=== PATIENT | male | born 1960 | race Caucasian/White ===

== ENCOUNTER → 2021-09-09 | Outpatient (CLI) | payer OTHER ==
--- NOTE | 2021-09-09 10:51 | DIREP ---
PROCEDURE:CHEST 2 VIEWS COMPARISON:None. INDICATIONS:COUGH FINDINGS: LUNGS/PLEURA:No significant pulmonary parenchymal abnormalities. No effusions. VASCULATURE:Normal. Unremarkable pulmonary vasculature. CARDIAC:Normal. No cardiac silhouette abnormality or cardiomegaly. MEDIASTINUM:Normal. No visible mass or adenopathy. BONES:Incompletely visualized posterior instrumentation and fusion hardware of the upper lumbar spine. OTHER:Negative. CONCLUSION: No acute thoracic pathology. Dictated by: Merritt Bolivar MD on 09/09/2021 at 10:49 AM
== END | disposition home or self-care (01) ==
LOC: RAD 08:38
PROVIDERS: ATTEND Family Medicine
DX: R05.9 Cough, unspecified (principal)
CPT/HCPCS: 71046

== ENCOUNTER 2021-10-23 08:56 | Emergency (ER) | payer OTHER ==
[~2021-10-23] VITALS: Ht 180.3 cm; Wt 90.7 kg
[2021-10-23 09:17] VITALS: BP 133/82
[2021-10-23 09:22] VITALS: BP 133/82
--- NOTE | 2021-10-23 09:34 | ER.PDOC ---
General Chief Complaint: General Complaint Stated Complaint: LOSS OF TASTE TRAVEL OUT OF US: No Time seen by MD: 09:33 History of Present Illness Initial Comments COVID VACCINATED Timing/Duration: 4-6 hours Severity: mild Modifying Factors: improves with other Associated Symptoms: malaise Allergies: Coded Allergies: No Known Allergies (Unverified , 10/23/21) Past Medical History Medical History: cardiac problems, diabetes, GERD, high cholesterol Surgical History: cardiac cath, stent Social History Alcohol Use: rarely Drug Use: none Reviewed Nursing Reviewed: Vital Signs, Abn. Noted Review of Systems EENTM: nose congestion All Other Systems: Reviewed and Negative Physical Exam General Appearance: No Apparent Distress EENT: eyes nml inspection Neck: Non-Tender Respiratory: chest non-tender CVS: reg rate & rhythm Gastrointestinal: Normal Bowel Sounds Back: Normal Inspection Extremities: Normal Range of Motion Neurologic/Psychiatric: manager practice II-XII NML as Tested Skin: Normal Color Lymphatic: No Adenopathy Results/Orders Results/Orders Orders - COLTEN JIMENEZ MD Covid Resp Hussein (10/23/21 09:15) Vital Signs Date Time Temp Pulse Resp B/P (MAP) Pulse Ox O2 Delivery O2 Flow Rate FiO2 10/23/21 09:22 98.3 70 20 133/82 (99) 95 Room Air 10/23/21 09:17 98.3 70 20 95 10/23/21 09:17 98.3 70 20 Laboratory Tests Test 10/23/21 09:25 Nasal Adenovirus (PCR) NotDetected (NotDetected) Nasal Coronavirus Type 229E (PCR) NotDetected (NotDetected) Nasal Coronavirus Type HKU1 (PCR) NotDetected (NotDetected) Nasal Coronavirus Type NL63 (PCR) NotDetected (NotDetected) Nasal Coronavirus Type OC43 (PCR) NotDetected (NotDetected) Nasal Enterovirus/Rhinovirus (PCR) NotDetected (NotDetected) Nasal Influenza Type A (H1) (PCR) NotDetected (NotDetected) Nasal Influenza Type A (H3) (PCR) NotDetected (NotDetected) Nasal Swab Influenza Virus B (PCR) NotDetected (NotDetected) Nasal Parainfluenza Type 1 (PCR) NotDetected (NotDetected) Nasal Parainfluenza Type 2 (PCR) NotDetected (NotDetected) Nasal Parainfluenza Type 3 (PCR) NotDetected (NotDetected) Nasal Parainfluenza Type 4 (PCR) NotDetected (NotDetected) Nasal Resp Syncytial Virus (PCR) NotDetected (NotDetected) Nasal Bordetella pertussis DNA (PCR NotDetected (NotDetected) Nasal Chlamydophila pneumoniae (PCR NotDetected (NotDetected) Nasal Human Metapneumovirus (PCR) NotDetected (NotDetected) Nasal Mycoplasma pneumoniae (PCR) NotDetected (NotDetected) Nasal SARS-CoV-2 (PCR) DETECTED (NotDetected) Influenza Type A (H1N1/09) (PCR) NotDetected (NotDetected) ER DEPART Departure Time of Disposition: 11:55 Disposition: 01 HOME / SELF CARE / HOMELESS Impression: Primary Impression: COVID-19 Condition: Improved Referrals: CHAZ BAKER MD (PCP) PRIMARY CARE PROVIDER Duration or Time Spent with Pa: COLTEN GOMEZ MD Oct 23, 2021 09:34
== END 2021-10-23 11:15 | disposition home or self-care (01) ==
LOC: ER 08:56
DX: U07.1 COVID-19 (principal); E11.9 Type 2 diabetes mellitus without complications; E78.00 Pure hypercholesterolemia, unspecified; K21.9 Gastro-esophageal reflux disease without esophagitis
CPT/HCPCS: 87633; 99283

== ENCOUNTER → 2021-10-23 | Outpatient (CLI) | payer OTHER ==
[~2021-10-23] MED LIST: CASIRIVIMAB IV ONE; IMDEVIMAB IV ONE; SODIUM CHLORIDE IV ONE
[2021-10-23 12:30] VITALS: BP 107/71
[2021-10-23 13:05] VITALS: BP 115/66
[2021-10-23 14:02] VITALS: BP 122/78
== END | disposition home or self-care (01) ==
LOC: OPTX 12:13
PROVIDERS: ATTEND Emergency Medicine Emergency Medical Services
DX: U07.1 COVID-19 (principal); E78.00 Pure hypercholesterolemia, unspecified; E11.9 Type 2 diabetes mellitus without complications; R05.9 Cough, unspecified
CPT/HCPCS: M0243; Q0244

== ENCOUNTER → 2022-08-04 | Outpatient (CLI) | payer OTHER ==
[2022-08-04 12:05] LABS: BASOPHIL # 0.1 10^3/uL (0.0-0.1); BASOPHIL % 1.2 % (0.0-0.2); EOSINOPHIL # 0.4 10^3/uL (0.0-0.2); EOSINOPHIL % 5.7 % (0.0-5.0); LYMPHOCYTES # 2.2 10^3/uL1 (1.0-4.8); LYMPHOCYTES % 28.6 % (24.0-44.0); MEAN CORP HGB 32.4 pg (26-34); MONOCYTES # 0.6 10^3/uL (0.3-0.8); MONOCYTES % 7.7 % (5.0-12.0); NEUTROPHIL # 4.3 10^3/uL (1.8-7.7); NEUTROPHILS % 56.3 % (41.0-85.0); RED CELL DISTRIBUTION WIDTH 11.9 % (11.5-14.5)
[2022-08-04 12:40] LABS: CARBON DIOXIDE 25.3 mmol/L (20.0-32)
== END | disposition home or self-care (01) ==
LOC: LAB 11:34
PROVIDERS: ATTEND Internal Medicine
DX: Z12.5 Encounter for screening for malignant neoplasm of prostate (principal); E11.42 Type 2 diabetes mellitus with diabetic polyneuropathy; I25.10 Atherosclerotic heart disease of native coronary artery without angina pectoris; R53.83 Other fatigue
CPT/HCPCS: 36415; 80053; 80061; 83036; 84153; 84403; 84439; 84443; 85025